=== PATIENT | male | born 1965 | race Caucasian/White ===

== ENCOUNTER 2018-08-22 22:39 | Inpatient (IN) | payer SELFPAY ==
[~2018-08-22] VITALS: Ht 180.3 cm; Wt 80.0 kg
[2018-08-22] MEDS ORDERED: IPRATROPIUM BROMIDE 0.02% 2.5 ML NEB NEB STA (22:43)
[2018-08-22] MEDS ORDERED: ALBUTEROL SULF 0.083% NEB SOLN 3 ML NEB NEB STA (22:43)
[2018-08-22] MEDS ORDERED: SODIUM CHLORIDE FLUSH 10 ML SYR INJ PRN (22:45)
[2018-08-22] MEDS ORDERED: SODIUM CHLORIDE 0.9% 500ML 500 ML IV STA (23:25)
[2018-08-22] MEDS ORDERED: LEVOFLOXACIN 750MG/D5W 150ML 150 ML IV ONE (23:30)
[2018-08-22] MEDS ORDERED: METHYLPREDNISOLONE SOD SUCC 125 MG/2ML VIAL IV ONE (23:30)
[2018-08-23] VITALS (17 sets, daily range): BP systolic 108–143; BP diastolic 72–98
[2018-08-23] MEDS ORDERED: D5.45%NS/KCL 20MEQ 1,000 ML IV ONE (00:03)
[2018-08-23] MEDS ORDERED: MORPHINE SULFATE INJ 4 MG/ML INJ 1ML IV PRN (00:15)
[2018-08-23] MEDS ORDERED: SODIUM CHLORIDE FLUSH 10 ML SYR INJ PRN (00:15)
[2018-08-23] MEDS ORDERED: ALBUTEROL SULF 0.083% NEB SOLN 3 ML NEB NEB SCH (00:15)
[2018-08-23] MEDS ORDERED: ENALAPRILAT IV INJ 1.25 MG/ML VIAL IV PRN (00:15)
[2018-08-23] MEDS ORDERED: IBUPROFEN 200 MG TAB PO PRN (00:15)
[2018-08-23] MEDS ORDERED: ONDANSETRON HCL INJ 2MG/ML 2ML 2 MG/ML VIAL IV PRN (00:15)
[2018-08-23] MEDS ORDERED: ACETAMINOPHEN 325 MG TAB PO PRN (00:15)
[2018-08-23] MEDS ORDERED: CEFEPIME HCL 2 GM/SOD CHL 0.9% 100 ML BAG IV SCH (00:15)
[2018-08-23] MEDS ORDERED: NICOTINE 14 MG/EA PATCH TOP SCH (00:15)
[2018-08-23] MEDS ORDERED: DIPHENHYDRAMINE HCL INJ 50 MG/ML VIAL IV PRN (00:15)
--- NOTE | 2018-08-23 00:16 | Diagnostic Imaging Report ---
EXAMINATION: CXR 2 VIEW - HOPD INDICATION: Shortness of breath, cough, history of smoking COMPARISON: None FINDINGS: PA and lateral views TUBES and LINES: None. LUNGS: Lungs are well inflated. Chronic appearing diffuse interstitial changes. There is no evidence of consolidative pneumonia or pulmonary edema. PLEURA: No pleural effusion or pneumothorax. HEART AND MEDIASTINUM: The cardiomediastinal silhouette is unremarkable. BONES AND SOFT TISSUES: No acute osseous lesion. Soft tissues are unremarkable. UPPER ABDOMEN: No free air under the diaphragm. IMPRESSION: Chronic appearing diffuse interstitial changes. Superimposed atypical infection also possible in the appropriate clinical setting. Signed by: DR. Fredy Dodd MD on 08/23/2018 12:12 AM
--- OUTSIDE RECORDS SUMMARY | 2018-08-23 00:26 | XMS REPORT ---
Author Author [facility] Address Unknown Phone Unavailable Care Team Providers Care Roving Hauler Name Role Phone Saida REED Unavailable Unavailable Problems This patient has no known problems. Allergies, Adverse Reactions, Alerts This patient has no known allergies or adverse reactions. Medications This patient has no known medications. Results Test Description Test Time Test Comments Text Results Atomic Results Result Comments CXR 2 VIEW - HOPD 2018-08-23 00:09:00 [place] [id number] Patient Name: KIM HICKEY MR #: [id number] : 1965 Age/Sex: 53/M Req #: [id number] Adm Physician: Ordered by: COOKIE REED MD Report #: [id number] Location: [facility] Room/Bed: Procedure: [id number] HOPD/CXR 2 VIEW - HOPD Exam Date: Exam Time: REPORT STATUS: Signed EXAMINATION: CXR 2 VIEW - HOPD INDICATION: Shortness of breath, cough, history of smoking COMPARISON: None FINDINGS: PA and lateral views TUBES and LINES: None. LUNGS: Lungs are well inflated. Chronic appearing diffuse interstitial changes. There is no evidence of consolidative pneumonia or pulmonary edema. PLEURA: No pleural effusion or pneumothorax. HEART AND MEDIASTINUM: The cardiomediastinal silhouette is unremarkable. BONES AND SOFT TISSUES: No acute osseous lesion. Soft tissues are unremarkable. UPPER ABDOMEN: No free air under the diaphragm. IMPRESSION: Chronic appearing diffuse interstitial changes. Superimposed atypical infection also possible in the appropriate clinical setting. Signed by: DR. Fredy Frost MD on 08/23/2018 12:12 AM Dictated By: FREDY FROST MD Transcribed By: JASPER on 08/23/1811 COPY TO: COOKIE REED MD
[2018-08-23] MEDS: IPRATROPIUM BROMIDE 0.02% 2.5 ML NEB NEB SCH ×7 (05:00→23:45)
[2018-08-23] MEDS: ALBUTEROL SULF 0.083% NEB SOLN 3 ML NEB NEB SCH ×7 (05:00→23:45)
--- NOTE | 2018-08-23 07:00 | NUR ---
REPORT FROM [facility] CALLED FOR EMERGENT TRANSFER ETA 30MIN
[2018-08-23] MEDS ORDERED: METHYLPREDNISOLONE SOD SUCC 125 MG/2ML VIAL IV SCH ×2 (09:00)
[2018-08-23 09:32] LABS: ABG PCO2 40 mmHg (41-51); ABG PH 7.34 (7.31-7.41)
[2018-08-23] MEDS: METHYLPREDNISOLONE SOD SUCC 40 MG/ML VIAL 1ML IV SCH ×2 (09:32→20:30)
[2018-08-23] MEDS: NICOTINE 14 MG/EA PATCH TOP SCH (09:32)
[2018-08-23 09:33] LABS: ABG HCO3 22 mmol/L (23-28); ABG PO2 66 mmHg (80-105)
--- NOTE | 2018-08-23 10:04 | NUR ---
patient received from [facility] at 0745. placed in bed and monitor applied. very short of breath with any exertion. CT chest ordered and completed. Dr Cates office notified of consult. vitals stable with BiPap in back up if needed. see admit assess. will monitor status closely.
--- NOTE | 2018-08-23 10:11 | Diagnostic Imaging Report ---
EXAM: CT Chest WITHOUT contrast 08/23/2018 8:15 AM INDICATION: Emphysema, pneumonia COMPARISON: Chest x-ray, 08/22/2018 TECHNIQUE: Chest was scanned utilizing a multidetector helical scanner from the lung apex through the level of the adrenal glands without administration of IV contrast. Absence of intravenous contrast decreases sensitivity for detection of lymphadenopathy and vascular pathology. Coronal and sagittal reformations were obtained. High-resolution protocol was performed including prone and supine, inspiration and expiration imaging. Dose modulation, iterative reconstruction, and/or weight based adjustment of the mA/kV was utilized to reduce the radiation dose to as low as reasonably achievable. IV CONTRAST: None RADIATION DOSE: Total DLP: 1635.21 mGy*cm Estimated effective dose: (DLP x 0.014 x size factor) mSv COMPLICATIONS: None FINDINGS: LINES/ TUBES: None. LUNGS AND AIRWAYS: There is moderate centrilobular emphysema. In addition, there are small nodular opacities extensively distributed in the upper and lower lobes bilaterally. There is localized airspace consolidation in the right middle lobe and, to a lesser extent, in the lingula. There is no localized air-trapping identified. Trachea and main bronchi are clear. There is bilateral perihilar bronchial wall thickening. PLEURA: No pleural effusion, pneumothorax or pleural calcification. HEART AND MEDIASTINUM: The thyroid gland is normal. There is extensive mediastinal adenopathy, including 1.2 cm pretracheal node (series 3, image 35), 1.4 cm precarinal node (image 54), 1.2 cm subcarinal node (image 65), 1.5 cm right hilar node (image 63), and 1.1 cm left hilar node (image 52). The heart is normal in size.. There is no pericardial effusion. The thoracic aorta is not dilated, and the main pulmonary artery measures 2.8 cm, nondilated. There is mild wall thickening of the distal esophagus, likely accentuated by lack of distention and possible small hiatus hernia. UPPER ABDOMEN: Included portions of the unenhanced liver, spleen, pancreas and adrenals show no focal abnormality. BONES: No acute or suspicious bony lesion. There are degenerative changes in the thoracic spine. SOFT TISSUES: Superficial surrounding soft tissue unremarkable. No significant axillary lymphadenopathy. IMPRESSION: 1. There is moderate centrilobular emphysema. 2. There are extensive small nodular opacities distributed throughout the lungs. There is also mediastinal adenopathy present. Findings may represent infection such is bronchiolitis or miliary appearance of atypical infection. Other possible considerations include hypersensitivity pneumonitis, sarcoid, connective tissue disorder and less likely lymphangitic spread of neoplasm.. 3. There are focal areas of consolidation in the right middle lobe and lingula which may represent superimposed acute pneumonitis. Signed by: Dr. Montrell Castle M.D. on 08/23/2018 10:08 AM
[2018-08-23] MEDS ORDERED: TUBERCULIN, PPD INJ 5 TU/0.1 ML INJ ID ONE (10:15)
--- NOTE | 2018-08-23 10:34 | NUR ---
PPD to left forearm instilled and marked.
[2018-08-23 10:53] LABS: CLARITY,URINE SL CLOUDY (CLEAR); COLOR,URINE YELLOW (YELLOW)
[2018-08-23 10:54] LABS: LEUKOCYTE ESTERASE ,URINE NEGATIVE (NEGATIVE); NITRITE,URINE NEGATIVE (NEGATIVE)
[2018-08-23 10:55] LABS: BILIRUBIN,URINE NEGATIVE (NEGATIVE); KETONES,URINE 1+ (NEGATIVE); PROTEIN,URINE DIPSTICK 3+ (NEGATIVE); URINE UROBILINOGEN 0.2 mg/dL (0.2 - 1)
[2018-08-23 10:57] LABS: RBC,URINE 0-5 /HPF (0-5); WBC,URINE (MAN) 0-5 /HPF (0-5)
[2018-08-23 10:58] LABS: COARSE GRANULAR CASTS,URINE >15 (0)
[2018-08-23 10:59] LABS: AMORPHOUS SEDIMENT,URINE MODERATE (FEW)
[2018-08-23 12:37] LABS: CREATINE KINASE MB 12.7 ng/mL (0-5.0)
[2018-08-23] MEDS: CEFEPIME 2 GM/NS 0.9% 100 ML 100 ML IV SCH (12:37)
[2018-08-23 13:47] LABS: HIV 1&2 AB SCREEN NON-REACTIVE (NONREACTIVE)
--- NOTE | 2018-08-23 14:55 | NUR ---
GAVE PACKET OF INFORMATION WITH [facility] [employer] FOR ASSISTANCE WITH LOW TO NO INCOME TO PATIENT. RESOURCES THAT PATIENT MAY BE ABLE TO FOLLOW UP UPON DISCHARGE. PT EDUCATED ON EACH RESOURCE AND UNDERSTANDING HOW TO FOLLOW UP TO SEE IF QUALIFIED FOR EACH RESOURCE.
--- NOTE | 2018-08-23 15:21 | Consultation ---
DATE OF CONSULTATION: 08/23/2018 Pulmonary Consultation HISTORY OF PRESENT ILLNESS: Charming but unfortunate 53-year-old gentleman with history of COPD, ill for some five years with shortness of breath on exertion. History of thoracentesis in the past, history of tonsillectomy in the past. Born in [place]. Progressively dyspneic over the last three days following a trip to [place], [place]. Had cough and chills and fever. Initially nonproductive and now productive of cisse sputum. On no regular medications. Smoked 55 pack years. 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 PHYSICAL EXAMINATION: GENERAL: He is a well-developed white male looking his stated age, anxious, somewhat tachypneic. VITAL SIGNS: Temperature 97.2, pulse 92, respirations 20 and deep. LUNGS: Bilateral rales. HEART: Regular rhythm. ABDOMEN: Nontender. EXTREMITIES: Nonedematous. IMPRESSION: Atypical pneumonia, possible underlying interstitial lung disease with micronodular infiltrate. Miliary infection cannot be excluded though the patient is afebrile. Labs from outside ER suggest leukocytosis with shift to the left. I will check HIV, QuantiFERON test, urine for histoplasma, high-resolution CT of the chest. Continue empiric antibiotics. We will request ID opinion for second opinion. Supplemental oxygen. The patient may require bronchoscopy and lavage if not soon improving. We will review CT when available. Thank you for this kind referral. MD ANGELY Sellers/PARISH /[id number]
--- NOTE | 2018-08-23 16:06 | History and Physical ---
HISTORY OF PRESENT ILLNESS: Mr. Xie is a 53-year-old man, heavy smoker, came to the emergency room complaining of 1-week history of severe cough, shortness of breath, and fever. PAST MEDICAL HISTORY: He denies. SOCIAL HISTORY: He smokes two and half packs per day. He drinks occasionally. ALLERGIES: NO KNOWN DRUG ALLERGIES. PAST SURGICAL HISTORY: He had tonsillectomy and he had some pleural effusion drained several years ago. PHYSICAL EXAMINATION: GENERAL: Today, he is awake. He is alert. VITAL SIGNS: Temperature is 96.9, blood pressure 143/82, and heart is regular rate at 92 per minute. LUNGS: Decreased breath sounds bilaterally. ABDOMEN: Distended and soft. LABORATORY DATA: On the blood work, cardiac enzymes are pending. He had lab work in Urgent Care, drug screening was negative. White count was 11.8 and hemoglobin 14.1. Sodium 129, potassium 3.8, creatinine 0.7, and glucose 124. Chest x-ray showed chronic appearing diffuse interstitial changes with superimposed atypical infection, also possible in the appropriate clinical settings. ASSESSMENT: 1. Acute hypoxic respiratory failure. 2. Chronic obstructive pulmonary disease exacerbation. 3. Probably bronchopneumonia. 4. Tobacco abuse. PLAN: At the present time is we got Pulmonary consult and Infectious Disease consult. Pulmonary consult with Dr. Nunez and ID consult with Dr. Cates. Continue neb treatments. Continue to monitor oxygenation on O2 nasal cannula. Continue methylprednisolone 20 mg IV q.12 hours. Continue IV antibiotics. All this was discussed with the patient and questions were answered to satisfaction. MD JOE Wheeler/HUGOL /[id number]
[2018-08-23] MEDS ORDERED: ENOXAPARIN SOD INJ 40 MG/0.4 ML SYR SC ONE (16:35)
[2018-08-23] MEDS ORDERED: ENOXAPARIN SOD INJ 40 MG/0.4 ML SYR SC SCH (17:00)
[2018-08-23 17:52] LABS: CREATINE KINASE MB 12.1 ng/mL (0-5.0)
--- NOTE | 2018-08-23 19:06 | Consultation ---
DATE OF CONSULTATION: 08/23/2018 REASON FOR CONSULTATION: Pneumonia. HISTORY OF PRESENT ILLNESS: This patient who is a 53-year-old white male, denies past medical history, but he is a heavy smoker, who smokes two packs a day for several years, comes in with one-week history of fever, chills, shortness of breath, coughing up brownish sputum. The patient comes into the emergency room where he was admitted. The patient is currently lying in bed comfortably. He states he is feeling better, but he is still short of breath. PAST MEDICAL HISTORY: Denies. PAST SURGICAL HISTORY: Denies. ALLERGIES: NKA. SOCIAL HISTORY: There is smoking two packs a day for more than 30 years. REVIEW OF SYSTEMS: Besides the shortness of breath and a cough, he denies any. PHYSICAL EXAMINATION: GENERAL: He is currently alert, oriented, does not seem to be in acute distress. VITAL SIGNS: Stable, currently afebrile. HEENT: He is not icteric. NECK: Supple. CHEST: Few crackles bilaterally. HEART: S1, S2. No S3, S4, or murmur. ABDOMEN: Soft. IMAGING DATA: CT scan showed emphysema, extensive small nodular opacities distributed throughout the lungs with mediastinal lymphadenopathy. There is also consolidation of right middle lobe. IMPRESSION AND PLAN: Pneumonia, community acquired, atypical presentation of the CT scan, could be Mycobacterium, Chlamydia, Mycoplasma. He is currently on cefepime and Levaquin. Continue same. We would recommend to obtain sputum for AFB x3, sputum for routine Gram stain culture and sensitivity. Order TB QuantiFERON, urine Legionella antigen, HIV. Recheck CBC and chemistry panel. Continue with steroids for now. Order blood cultures. We will follow with you. MD KARI Mooney/PARISH /[id number]
[2018-08-23] MEDS: LEVOFLOXACIN 500MG/D5W 100ML 100 ML IV SCH (20:30)
[2018-08-23] MEDS ORDERED: LEVOFLOXACIN 500MG/D5W 100ML IV SCH (22:45)
[2018-08-24] VITALS (23 sets, daily range): BP systolic 110–152; BP diastolic 69–100
[2018-08-24] MEDS: CEFEPIME 2 GM/NS 0.9% 100 ML 100 ML IV SCH ×3 (01:00→12:00)
[2018-08-24] MEDS: IPRATROPIUM BROMIDE 0.02% 2.5 ML NEB NEB SCH ×6 (03:05→23:15)
[2018-08-24] MEDS: ALBUTEROL SULF 0.083% NEB SOLN 3 ML NEB NEB SCH ×6 (03:05→23:15)
[2018-08-24 05:07] LABS: BASOPHILS # (AUTO) 0.2 (0.0-0.1); BASOPHILS % 0.8 % (0.0-1.0); HEMATOCRIT 41.1 % (38.2-49.6); HEMOGLOBIN 14.3 g/dL (14.0-18.0); LYMPHOCYTES % 11.3 % (18.0-39.1); MEAN CORPUSCULAR HEMOGLOBIN 30.3 pg (28-32); MEAN CORPUSCULAR HGB CONC 34.8 g/dL (31-35); MEAN CORPUSCULAR VOLUME 87.1 fL (81-99); MONOCYTES # (AUTO) 0.9 (0.2-0.8); MONOCYTES % 5.2 % (4.4-11.3); NEUTROPHILS % 78.7 % (38.7-80.0); PLATELET COUNT 377 x10e3/uL (140-360); RED BLOOD COUNT 4.72 x10e6/uL (4.3-5.7); RED CELL DISTRIBUTION WIDTH 13.2 % (11.7-14.4)
[2018-08-24 05:37] LABS: ALANINE AMINOTRANSFERASE 30 IU/L (0-55); ALBUMIN 2.2 g/dL (3.5-5.0); ALBUMIN/GLOBULIN RATIO 0.4 (0.8-2.0); ALKALINE PHOSPHATASE 104 IU/L (40-150); ANION GAP 15.7 mmol/L (8-16); BLOOD UREA NITROGEN 16 mg/dL (7-26); BUN/CREATININE RATIO 21 (6-25); CALCIUM 9.7 mg/dL (8.4-10.2); CARBON DIOXIDE 23 mmol/L (22-29); CHLORIDE 99 mmol/L (98-107); CREATININE, SERUM 0.76 mg/dL (0.72-1.25); EST GLOMERULAR FILTRATION RATE > 60 ML/MIN (60-); GLUCOSE 159 mg/dL (74-118); POTASSIUM 3.7 mmol/L (3.5-5.1); SODIUM 134 mmol/L (136-145)
[2018-08-24 05:42] LABS: INR 1.13
[2018-08-24 05:43] LABS: PARTIAL THROMBOPLASTIN TIME 30.5 seconds (23.8-35.5)
[2018-08-24 05:44] LABS: CREATINE KINASE 141 IU/L (30-200)
--- NOTE | 2018-08-24 06:15 | Diagnostic Imaging Report ---
EXAMINATION: CHEST SINGLE (PORTABLE) INDICATION: Shortness of breath. ^sob ^[id number] ^[id number] COMPARISON: Chest CT 08/23/2018 and chest x-ray 08/22/2018 FINDINGS: AP view TUBES and LINES: None. LUNGS: Emphysema with stable superimposed interstitial opacities corresponding to extensive nodular opacities on chest CT 08/23/2018 with broad differential including represent bronchiolitis or atypical infection. PLEURA: No pleural effusion or pneumothorax. HEART AND MEDIASTINUM: The cardiomediastinal silhouette is unremarkable. BONES AND SOFT TISSUES: No acute osseous lesion. Soft tissues are unremarkable. UPPER ABDOMEN: No free air under the diaphragm. IMPRESSION: No significant change. Stable diffuse opacities corresponding to extensive nodular opacities on chest CT 08/23/2018 with broad differential including represent bronchiolitis or atypical infection. Signed by: DR. Fredy Dodd MD on 08/24/2018 6:12 AM
[2018-08-24 07:21] LABS: LYMPHOCYTES % (MANUAL) 14 % (19-48); MONOCYTES % (MANUAL) 5 % (3.4-9.0); NEUTROPHILS % (MANUAL) 80 % (40-74)
[2018-08-24 07:23] LABS: PLATELET ESTIMATE ADEQUATE; PLATELET MORPHOLOGY COMMENT NORMAL; RBC MORPHOLOGY COMMENT NORMAL
[2018-08-24] MEDS: METHYLPREDNISOLONE SOD SUCC 40 MG/ML VIAL 1ML IV SCH ×2 (09:35→23:01)
[2018-08-24] MEDS: NICOTINE 14 MG/EA PATCH TOP SCH (09:35)
--- NOTE | 2018-08-24 12:34 | Progress Note ---
DATE: 08/24/2018 SUBJECTIVE: Mr. Xie is a 53-year-old man with history of being a heavy smoker 2-1/2 packs per day, came to the emergency room complaining of one week history of cough, shortness of breath and fever. He has been seen by Pulmonary and Infectious Disease. He is on IV antibiotics. OBJECTIVE: GENERAL: Today, he is feeling a little better. VITAL SIGNS: Temperature is 97.5, blood pressure is 114/89. HEART: Regular rate. LUNGS: Bilateral crackles. ABDOMEN: Distended and soft. LABORATORY DATA: On the blood work, potassium is 3.7, creatinine is 0.79, glucose is 159. White count is 17.7, hemoglobin is 14.3, hematocrit is 41.1. Blood gas had a pH of 7.34 and coagulation INR 1.13. Urine shows 0 to 5 white blood cells. HIB has come negative. Mycoplasma pneumonia is pending. TB test is pending. All the AFB cultures are pending. Blood cultures no growth so far. Chest CT shows moderate centrilobular emphysema, extensive small nodular opacities throughout the lungs. Some mediastinal adenopathy. There are also focal areas of consolidation in the right middle lobe and lingula that could represent acute pneumonitis. ASSESSMENT AND PLAN: 1. Acute hypoxic respiratory failure. 2. Chronic obstructive pulmonary disease exacerbation. 3. Atypical pneumonia. 4. Tobacco abuse. PLAN: At the present time is to continue IV steroids, IV antibiotics, neb treatments. Continue to monitor respiratory status. We are waiting for AFB results, Gram stain culture and sensitivity, TB QuantiFERON, urine Legionella. HIB so far has been negative. The overall prognosis of the patient is guarded. All this was discussed with the patient. All questions were answered to satisfaction. MD JOE Wheeler/PARISH /[id number]
--- NOTE | 2018-08-24 12:34 | Progress Note ---
DATE: 08/24/2018 SUBJECTIVE: Mr. Xie is a 53-year-old man with history of being a heavy smoker 2-1/2 packs per day, came to the emergency room complaining of 1-week history of cough, shortness of breath, and fever. He has been seen by Pulmonary and Infectious Disease. He is on IV antibiotics. PHYSICAL EXAMINATION: GENERAL: Today, he is feeling a little better. VITAL SIGNS: Temperature is 97.5, blood pressure is 114/89. HEART: Regular rate. LUNGS: Bilateral crackles. ABDOMEN: Distended and soft. LABORATORY DATA: On the blood work, potassium is 3.7, creatinine is 0.79, glucose is 159. White count is 17.7, hemoglobin is 14.3, hematocrit is 41.1. Blood gas had a pH of 7.34. Coagulation, INR 1.13. Urine shows 0-5 white blood cells. HIB has come negative. Mycoplasma pneumoniae is pending. TB test is pending. All the AFB cultures are pending. Blood cultures, no growth so far. Chest CT shows moderate centrilobular emphysema, extensive small nodular opacities throughout the lungs, some mediastinal adenopathy, there are also focal areas of consolidation in the right middle lobe and lingula that could represent acute pneumonitis. ASSESSMENT AND PLAN: 1. Acute hypoxic respiratory failure. 2. Chronic obstructive pulmonary disease exacerbation. 3. Atypical pneumonia. 4. Tobacco abuse. The plan at the present time is to continue IV steroids, IV antibiotics, neb treatments. Continue to monitor respiratory status. We are waiting for AFB results, Gram stain culture and sensitivity, TB QuantiFERON, urine Legionella. HIB so far has been negative. The overall prognosis of the patient is guarded. All this was discussed with the patient. All questions were answered to satisfaction. MD JOE Wheeler/HUGOL /[id number]
[2018-08-24 16:27] LABS: ANION GAP 13.7 mmol/L (8-16); BLOOD UREA NITROGEN 18 mg/dL (7-26); BUN/CREATININE RATIO 25 (6-25); CALCIUM 9.5 mg/dL (8.4-10.2); CARBON DIOXIDE 24 mmol/L (22-29); CHLORIDE 100 mmol/L (98-107); CREATININE, SERUM 0.73 mg/dL (0.72-1.25); EST GLOMERULAR FILTRATION RATE > 60 ML/MIN (60-); GLUCOSE 152 mg/dL (74-118); POTASSIUM 3.7 mmol/L (3.5-5.1); SODIUM 134 mmol/L (136-145)
[2018-08-24] MEDS: LEVOFLOXACIN 500MG/D5W 100ML 100 ML IV SCH (23:01)
[2018-08-25] VITALS (24 sets, daily range): BP systolic 97–143; BP diastolic 52–94
[2018-08-25] MEDS: CEFEPIME 2 GM/NS 0.9% 100 ML 100 ML IV SCH ×2 (00:04→11:37)
[2018-08-25] MEDS: IPRATROPIUM BROMIDE 0.02% 2.5 ML NEB NEB SCH ×5 (03:00→19:30)
[2018-08-25] MEDS: ALBUTEROL SULF 0.083% NEB SOLN 3 ML NEB NEB SCH ×3 (03:00→11:00)
[2018-08-25 05:01] LABS: BASOPHILS # (AUTO) 0.1 (0.0-0.1); BASOPHILS % 0.5 % (0.0-1.0); HEMATOCRIT 39.9 % (38.2-49.6); HEMOGLOBIN 13.5 g/dL (14.0-18.0); LYMPHOCYTES # (AUTO) 1.8 (1.0-3.2); LYMPHOCYTES % 9.9 % (18.0-39.1); MEAN CORPUSCULAR HEMOGLOBIN 29.7 pg (28-32); MEAN CORPUSCULAR HGB CONC 33.8 g/dL (31-35); MEAN CORPUSCULAR VOLUME 87.9 fL (81-99); MONOCYTES # (AUTO) 0.6 (0.2-0.8); MONOCYTES % 3.6 % (4.4-11.3); NEUTROPHILS # (AUTO) 14.7 (2.1-6.9); NEUTROPHILS % 82.7 % (38.7-80.0); PLATELET COUNT 424 x10e3/uL (140-360); RED BLOOD COUNT 4.54 x10e6/uL (4.3-5.7); RED CELL DISTRIBUTION WIDTH 13.7 % (11.7-14.4)
[2018-08-25 05:24] LABS: ANION GAP 12.6 mmol/L (8-16); BLOOD UREA NITROGEN 16 mg/dL (7-26); BUN/CREATININE RATIO 22 (6-25); CARBON DIOXIDE 24 mmol/L (22-29); CHLORIDE 99 mmol/L (98-107); CREATININE, SERUM 0.72 mg/dL (0.72-1.25); EST GLOMERULAR FILTRATION RATE > 60 ML/MIN (60-); GLUCOSE 184 mg/dL (74-118); POTASSIUM 3.6 mmol/L (3.5-5.1); SODIUM 132 mmol/L (136-145)
--- NOTE | 2018-08-25 06:59 | Diagnostic Imaging Report ---
EXAMINATION: CHEST SINGLE (PORTABLE) INDICATION: Pneumonia. COMPARISON: Chest CT 08/23/2018 and chest x-ray 08/24/2018 FINDINGS: AP view TUBES and LINES: None. LUNGS: Emphysema with stable superimposed interstitial opacities corresponding to extensive nodular opacities on chest CT 08/23/2018. PLEURA: No pleural effusion or pneumothorax. HEART AND MEDIASTINUM: The cardiomediastinal silhouette is unremarkable. BONES AND SOFT TISSUES: No acute osseous lesion. Soft tissues are unremarkable. UPPER ABDOMEN: No free air under the diaphragm. IMPRESSION: No significant change. Stable diffuse reticulonodular opacities, as seen on chest CT 08/23/2018 with broad differential including bronchiolitis or atypical infection. Signed by: DR. Fredy Dodd MD on 08/25/2018 6:56 AM
[2018-08-25 07:39] LABS: LYMPHOCYTES % (MANUAL) 8 % (19-48); MONOCYTES % (MANUAL) 3 % (3.4-9.0); NEUTROPHILS % (MANUAL) 89 % (40-74)
[2018-08-25] MEDS: NICOTINE 14 MG/EA PATCH TOP SCH (08:30)
[2018-08-25] MEDS: METHYLPREDNISOLONE SOD SUCC 40 MG/ML VIAL 1ML IV SCH ×2 (08:30→21:16)
--- NOTE | 2018-08-25 11:23 | NUR ---
PPD TO L FOREARM NEGATIVE. NO RAISED AREA OR REDNESS NOTED TO SITE.
--- NOTE | 2018-08-25 11:49 | Progress Note ---
DATE: 08/25/2018 HISTORY OF PRESENT ILLNESS: Mr. Xie is a 53-year-old man, heavy smoker, 2-1/2 pack per day, came to the emergency room complaining of 1-week history of cough, shortness of breath and fever. He is in ICU on IV antibiotics and neb treatments. He states he is feeling a little better. PHYSICAL EXAMINATION: GENERAL: He looks pale. He does not look too good clinically. VITAL SIGNS: Temperature is 97.8, blood pressure 123/79. CARDIAC: Regular rate at 99 per minutes. LUNGS: Decreased breath sounds bilaterally with wheezing. O2 saturation is 96%. ABDOMEN: Distended and soft. LABORATORY DATA: Potassium 3.6, creatinine is 0.72, and glucose is 184. White count is 17.7, hemoglobin 13.5, and hematocrit 39.9. The chest CT shows centrilobular emphysema, extensive small nodular opacity throughout the lungs, some adenopathies, consolidation in the right middle lobe and lingula that could represent acute pneumonitis. ASSESSMENT: 1. Acute hypoxic respiratory failure. 2. Chronic obstructive pulmonary disease exacerbation. 3. Atypical pneumonia. 4. Tobacco abuse. PLAN: Plan at the present time, we are awaiting for AFB results. We are waiting for sputum culture results. We have mycoplasma, TB test, and Legionella antigen is also pending. Continue IV cefepime. Continue IV steroids. Continue nausea and pain medication. Continue neb treatments with albuterol. The patient is going to go for bronchoscopy today. The overall prognosis of the patient remains guarded. MD JOE Wheeler/MODL /[id number]
[2018-08-25] MEDS ORDERED: PHENYLEPHRINE HCL 1% NA SPR 15 ML BTL ONE (12:30)
--- NOTE | 2018-08-25 12:54 | NUR ---
PT TAKEN FOR PROCEDURE AT THIS TIME
--- NOTE | 2018-08-25 14:00 | NUR ---
PT BACK FROM PROCEDURE, COUGHING AND SWEATING AT THIS TIME SATS AT 87% PT PLACED ON 15L HI KIRT AT THIS TIME BY RT. WILL CONTINUE TO MONITOR CLOSELY TEMP. 98.0
[2018-08-25] MEDS ORDERED: LIDOCAINE HCL 4% 50 ML BTL ONE (14:17)
[2018-08-25] MEDS ORDERED: LIDOCAINE HCL 2% LOCAL INJ 5 ML SDV VIAL INJ ONE (14:33)
[2018-08-25] MEDS ORDERED: PROPOFOL IV EMULSION 10 MG/ML 20 ML VIAL ONE (14:33)
[2018-08-25] MEDS ORDERED: SEVOFLURANE INHAL SOLN 250 ML PEN BTL ONE (14:33)
[2018-08-25] MEDS: LEVALBUTEROL HCL SOLN NEBU 0.63 MG/3 ML NEB INH PRN (14:33)
[2018-08-25] MEDS ORDERED: MIDAZOLAM HCL 2 MG/2 ML VIAL ONE (15:04)
[2018-08-25] MEDS ORDERED: FENTANYL CITRATE/PF 100MCG/2 ML INJ ONE (15:04)
--- NOTE | 2018-08-25 16:08 | Diagnostic Imaging Report ---
EXAM: CHEST SINGLE (PORTABLE), AP Portable DATE: 08/25/2018 Time stamp on exam: 2:10 PM INDICATION: Shortness of breath; status post bronchoscopy with lung biopsy COMPARISON: 08/24/2018 chest x-ray. FINDINGS: LINES/TUBES: None LUNGS: Extensive nodular opacities within both lung hurtado; right side greater than left. PLEURA: No effusions or pneumothorax. HEART AND MEDIASTINUM: Normal size and contour. BONES AND SOFT TISSUES: No acute findings. IMPRESSION: 1. Extensive bilateral small pulmonary nodular opacities. 2. No significant change or evidence of a pneumothorax. Signed by: Dr. Sudheer Hess DO on 08/25/2018 4:05 PM
[2018-08-25 16:42] LABS: BODY FLUID APPEARANCE CLEAR; BODY FLUID COLOR COLORLESS; BODY FLUID TYPE PLEURAL
[2018-08-25 16:43] LABS: RBC,BODY FLUID 17 cells/uL; WBC,BODY FLUID 423 cells/uL
[2018-08-25 17:16] LABS: LYMPHOCYTES,BODY FLUID 1 %; MONO/MACROPHG,BODY FLUID 1 %; NEUTROPHILS,BODY FLUID 98 %
--- NOTE | 2018-08-25 19:00 | NUR ---
Report received. Assumed care. Assessment done. See interventions. IV saline locked. 5L HFNC with sats 100%. SOB with exertion. Dangled on side of bed x 15 min. Shelli well.
[2018-08-25] MEDS: LEVALBUTEROL HCL SOLN NEBU 0.63 MG/3 ML NEB INH SCH (19:30)
--- NOTE | 2018-08-25 19:49 | NUR ---
Family in to visit. Questions answered.
[2018-08-25] MEDS: LEVOFLOXACIN 500MG/D5W 100ML 100 ML IV SCH (21:16)
--- NOTE | 2018-08-25 22:12 | Operative Report ---
DATE OF PROCEDURE: 08/25/2018 SURGEON: Roberth Nunez MD INDICATION: The patient with miliary infiltrates, negative cultures. Procedure was performed to rule out bacteriologic studies and for biopsy. Informed consent obtained from the patient. ANESTHESIA: MAC anesthesia was provided by Dr. Gil. PROCEDURE IN DETAIL: The procedure was performed through a LMA and O2 saturation remained above 95% throughout the procedure. There was severe inflammation of the true vocal cords, severe purulent tracheobronchitis throughout the bronchial tree. Purulent secretions were lavaged ___clear . Bronchoalveolar lavage was performed in the right middle lobe. Following this, 4 transbronchial biopsies were obtained under fluoroscopic control from the right lower lobe. The patient tolerated the procedure well. Minimal bleeding less than 2 ml mL of blood loss. Specimens were sent for bacteriologic and cytologic and pathologic study. . Chest x-ray is pending. He was extubated in the endoscopy suite. MD ANGELY Sellers/MODL /[id number] [id number]
[2018-08-26] VITALS (24 sets, daily range): BP systolic 110–137; BP diastolic 66–99
[2018-08-26] MEDS: CEFEPIME 2 GM/NS 0.9% 100 ML 100 ML IV SCH ×2 (00:27→12:10)
[2018-08-26] MEDS: LEVALBUTEROL HCL SOLN NEBU 0.63 MG/3 ML NEB INH SCH ×4 (01:00→19:05)
[2018-08-26] MEDS: IPRATROPIUM BROMIDE 0.02% 2.5 ML NEB NEB SCH ×4 (01:00→19:05)
--- NOTE | 2018-08-26 05:32 | NUR ---
Offered bath x 2 through the night. Refused at this time.
--- NOTE | 2018-08-26 06:53 | Diagnostic Imaging Report ---
EXAMINATION: CHEST SINGLE (PORTABLE) INDICATION: Status post biopsy. COMPARISON: Chest CT 08/23/2018 and chest x-ray 08/25/2018 FINDINGS: AP view TUBES and LINES: None. LUNGS: Emphysema with stable diffuse reticulonodular opacities. PLEURA: No pleural effusion or pneumothorax. HEART AND MEDIASTINUM: The cardiomediastinal silhouette is unremarkable. BONES AND SOFT TISSUES: No acute osseous lesion. Soft tissues are unremarkable. UPPER ABDOMEN: No free air under the diaphragm. IMPRESSION: No significant change. No pneumothorax Stable diffuse reticulonodular opacities. Signed by: DR. Fredy Dodd MD on 08/26/2018 6:49 AM
[2018-08-26] MEDS: NICOTINE 14 MG/EA PATCH TOP SCH (09:13)
[2018-08-26] MEDS: METHYLPREDNISOLONE SOD SUCC 40 MG/ML VIAL 1ML IV SCH ×2 (09:13→21:09)
[2018-08-26] MEDS: LEVALBUTEROL HCL SOLN NEBU 0.63 MG/3 ML NEB INH PRN (11:40)
--- NOTE | 2018-08-26 13:10 | Progress Note ---
DATE: 08/26/2018 SUBJECTIVE: Mr. Xie is a 53-year-old man, heavy smoker, two and half packs per day, came to the emergency room complaining of cough, shortness of breath, and fever. He was admitted to the ICU, was started on neb treatments, IV antibiotics, on oxygen and had a bronchoscopy done yesterday. OBJECTIVE: GENERAL: Today, he is awake and alert. He looks better today and he feels better. VITAL SIGNS: Temperature is 97.8 and blood pressure is 121/98. HEART: Regular rate. LUNGS: Decreased breath sounds bilaterally. ABDOMEN: Distended and soft. LABORATORY DATA: White count 17.73, hemoglobin 13.5, and hematocrit 39.9. Potassium 3.6, creatinine 0.72, and glucose was 184. Histoplasma pending. Urine legionella negative. Pneumocystis carinii pending. Mycoplasma pneumoniae . TB test was negative. We are waiting for AFBs that are pending. Blood cultures have been so far negative. HIV was negative. ASSESSMENT: 1. Acute hypoxic respiratory failure. 2. Chronic obstructive pulmonary disease exacerbation. 3. Atypical pneumonia. 4. Tobacco abuse. PLAN: At the present time is to wait for cultures and AFBs results. Continue IV antibiotics, IV steroids, had a bronchoscopy done yesterday. No significant findings. All this was discussed with the patient. All questions were answered to satisfaction. MD JOE Wheeler/PARISH /[id number]
[2018-08-26] MEDS: LEVOFLOXACIN 500MG/D5W 100ML 100 ML IV SCH (21:09)
[2018-08-27] VITALS (19 sets, daily range): BP systolic 103–136; BP diastolic 51–95
[2018-08-27] MEDS: LEVALBUTEROL HCL SOLN NEBU 0.63 MG/3 ML NEB INH SCH ×4 (01:45→19:15)
[2018-08-27] MEDS: IPRATROPIUM BROMIDE 0.02% 2.5 ML NEB NEB SCH ×4 (01:45→19:15)
[2018-08-27 05:09] LABS: EOSINOPHILS % 0.2 % (0.0-6.0); HEMATOCRIT 44.1 % (38.2-49.6); HEMOGLOBIN 14.7 g/dL (14.0-18.0); LYMPHOCYTES # (AUTO) 2.3 (1.0-3.2); LYMPHOCYTES % 17.4 % (18.0-39.1); MEAN CORPUSCULAR HEMOGLOBIN 30.1 pg (28-32); MEAN CORPUSCULAR HGB CONC 33.3 g/dL (31-35); MEAN CORPUSCULAR VOLUME 90.2 fL (81-99); MONOCYTES # (AUTO) 0.7 (0.2-0.8); MONOCYTES % 5.2 % (4.4-11.3); NEUTROPHILS # (AUTO) 9.6 (2.1-6.9); NEUTROPHILS % 72.3 % (38.7-80.0); PLATELET COUNT 452 x10e3/uL (140-360); RED BLOOD COUNT 4.89 x10e6/uL (4.3-5.7); RED CELL DISTRIBUTION WIDTH 13.6 % (11.7-14.4)
[2018-08-27 05:30] LABS: ALANINE AMINOTRANSFERASE 49 IU/L (0-55); ALBUMIN 2.2 g/dL (3.5-5.0); ALBUMIN/GLOBULIN RATIO 0.4 (0.8-2.0); ALKALINE PHOSPHATASE 82 IU/L (40-150); ANION GAP 12.6 mmol/L (8-16); BLOOD UREA NITROGEN 18 mg/dL (7-26); BUN/CREATININE RATIO 25 (6-25); CALCIUM 9.2 mg/dL (8.4-10.2); CARBON DIOXIDE 28 mmol/L (22-29); CHLORIDE 97 mmol/L (98-107); CREATININE, SERUM 0.73 mg/dL (0.72-1.25); EST GLOMERULAR FILTRATION RATE > 60 ML/MIN (60-); GLUCOSE 141 mg/dL (74-118); SODIUM 133 mmol/L (136-145)
[2018-08-27 05:38] LABS: POTASSIUM 4.6 mmol/L (3.5-5.1)
[2018-08-27] MEDS: METHYLPREDNISOLONE SOD SUCC 40 MG/ML VIAL 1ML IV SCH ×2 (09:07→20:14)
[2018-08-27] MEDS: NICOTINE 14 MG/EA PATCH TOP SCH (09:07)
[2018-08-27] MEDS: CEFEPIME 2 GM/NS 0.9% 100 ML 100 ML IV SCH ×2 (12:38)
[2018-08-27 14:37] LABS: LYMPHOCYTES % (MANUAL) 17 % (19-48); MONOCYTES % (MANUAL) 5 % (3.4-9.0); MYELOCYTES % (MANUAL) 1 % (0-0); NEUTROPHILS % (MANUAL) 69 % (40-74)
[2018-08-27 14:39] LABS: PLATELET ESTIMATE ADEQUATE; PLATELET MORPHOLOGY COMMENT NORMAL; RBC MORPHOLOGY COMMENT NORMAL
--- NOTE | 2018-08-27 17:05 | NUR ---
patient sitting in recliner since 11am. sob with minimal exertion. ambulated to bathroom twice today. patient tolerating meals well. will continue to monitor patient. okay with all physicians for patient to be downgraded today. pt updated with plan of care and agrees with poc.
[2018-08-27] MEDS: LEVOFLOXACIN 500MG/D5W 100ML 100 ML IV SCH (20:14)
[2018-08-28] VITALS (10 sets, daily range): BP systolic 102–152; BP diastolic 67–94
[2018-08-28] MEDS: CEFEPIME 2 GM/NS 0.9% 100 ML 100 ML IV SCH ×2 (00:11→11:11)
[2018-08-28] MEDS: LEVALBUTEROL HCL SOLN NEBU 0.63 MG/3 ML NEB INH SCH ×4 (00:15→20:25)
[2018-08-28] MEDS: IPRATROPIUM BROMIDE 0.02% 2.5 ML NEB NEB SCH ×4 (00:15→20:25)
[2018-08-28] MEDS: NICOTINE 14 MG/EA PATCH TOP SCH (08:48)
[2018-08-28] MEDS: METHYLPREDNISOLONE SOD SUCC 40 MG/ML VIAL 1ML IV SCH (08:48)
[2018-08-28] MEDS: LEVOFLOXACIN 500MG/D5W 100ML 100 ML IV SCH (20:25)
[2018-08-29] VITALS (9 sets, daily range): BP systolic 102–134; BP diastolic 69–99
[2018-08-29] MEDS: CEFEPIME 2 GM/NS 0.9% 100 ML 100 ML IV SCH ×2 (00:34→12:00)
[2018-08-29] MEDS: IPRATROPIUM BROMIDE 0.02% 2.5 ML NEB NEB SCH ×4 (01:00→20:00)
[2018-08-29] MEDS: LEVALBUTEROL HCL SOLN NEBU 0.63 MG/3 ML NEB INH SCH ×4 (01:00→20:00)
[2018-08-29] MEDS: METHYLPREDNISOLONE SOD SUCC 40 MG/ML VIAL 1ML IV SCH (09:45)
[2018-08-29] MEDS: NICOTINE 14 MG/EA PATCH TOP SCH (09:45)
--- NOTE | 2018-08-29 14:23 | Progress Note ---
DATE: 08/29/2018 SUBJECTIVE: Mr. Xie is a 53-year-old man, heavy smoker of two packs per day, came to the emergency room complaining of shortness of breath, fever and cough. He was found to have pneumonia, started on IV antibiotics, IV steroids. Had a bronchoscopy done that did not show any mass. He is in the ICU due to hypoxemia. PHYSICAL EXAMINATION: GENERAL: Today, he is awake and alert. He looks better. VITAL SIGNS: Temperature is 96, blood pressure is 114/88. LUNGS: Decreased breath sounds bilaterally. HEART: Regular rate. ABDOMEN: Soft. LABORATORY DATA: On the blood work; white count 13.29, hemoglobin 14.7. Creatinine 0.73, glucose 141. Chest x-ray done on the showed no change. No pneumothorax. Stable diffuse reticular nodular opacities. Bronchial washings are showing Streptococcus group C. AFBs are pending. Fungal culture is pending. Blood cultures are negative. ASSESSMENT: 1. Acute hypoxic respiratory failure. 2. Chronic obstructive pulmonary disease exacerbation. 3. Atypical pneumonia. 4. Tobacco abuse. PLAN: At present time, we are awaiting for AFBs and fungal culture results. Continue IV antibiotics, neb treatments, steroids. Infectious Disease and Pulmonary following patient with me. Clinically, he looks better. All this was discussed with the patient. All questions were answered to satisfaction. MD JOE Wheeler/[place]ISH /[id number]
[2018-08-29] MEDS ORDERED: SODIUM CHLORIDE 0.9% 250ML 250 ML ONE ×2 (14:30→21:45)
--- NOTE | 2018-08-29 17:37 | NUR ---
hr 130's from 70-80's with minimal exertion (talking, eating). O2 sats 94-96% on 5L nasal cannula. unable to wean oxygen. updated Dr. Bowles. new orders received for cta chest w/ contrast. updated patient with plan of care.
--- NOTE | 2018-08-29 18:29 | NUR ---
cta chest with contrast completed. patient tolerated exam well.
[2018-08-29] MEDS ORDERED: SODIUM CHLORIDE 0.9% 50ML 50 ML ONE (18:45)
[2018-08-29] MEDS ORDERED: IOPAMIDOL 370 MG/ML 200 ML INFUS..BTL INJ ONE (18:45)
--- NOTE | 2018-08-29 19:37 | Diagnostic Imaging Report ---
EXAM: CT Chest WITH contrast (PE Protocol) 08/29/2018 5:34 PM INDICATION: Shortness of breath. Elevated heart rate. ^r/o PE COMPARISON: Chest x-ray 08/26/2018. CT chest 08/23/2018. TECHNIQUE: Chest was scanned utilizing a multidetector helical scanner from the lung apex through the level of the adrenal glands without administration of IV contrast. Coronal and sagittal reformations were obtained. Pulmonary embolism protocol was performed. MIPS reconstruction images were performed in sagittal and coronal by the technologist at the scanner workstation. IV CONTRAST: 100 mL of Isovue 370 COMPLICATIONS: None RADIATION DOSE: Total DLP: 1075.11 mGy*cm Estimated effective dose: (DLP x 0.014 x size factor) mSv CTDIvol has been reviewed. It is below the limits set by the Radiation Protocol Committee (RPC). Dose modulation, iterative reconstruction, and/or weight based adjustment of the mA/kV was utilized to reduce the radiation dose to as low as reasonably achievable. FINDINGS: LINES/ TUBES: None. LUNGS AND AIRWAYS: Good contrast bolus. No pulmonary emboli. Moderate centrilobular emphysematous changes with apical predominance. Diffuse tree-in-bud opacities throughout the entire lung is again seen with slight improvement compared to this previous CT. Slight improvement in the more consolidative appearance in the right middle and lingular regions. However, there are some associated areas of groundglass opacity. Bronchial wall thickening remain unchanged. PLEURA: The pleural spaces are clear. HEART AND MEDIASTINUM: The thyroid gland is normal. Extensive mediastinal and hilar lymph nodes are again seen. * 0.8 cm right paratracheal lymph node (series 5, image 49). Previously 0.9 cm. * 0.9 cm right precarinal lymph node (image 55), previously 1.4 cm. * 1.1 cm right hilar lymph node (image 63), previously 1.5 cm. * 0.6 cm subcarinal lymph node (image 64), previously 1.2 cm. The heart is normal in size. There is no pericardial effusion. Main pulmonary artery measures 2.3 cm. Ascending aorta measures 3.8 cm. UPPER ABDOMEN: Unremarkable. BONES: The visualized bony thorax is within normal limits. SOFT TISSUES: Unremarkable. IMPRESSION: 1. No pulmonary emboli. 2. Unchanged moderate centrilobular emphysema. 3. Slight improvement in diffuse tree-in-bud nodules throughout bilateral lungs with improving mediastinal lymph nodes. This likely represents improving bronchiolitis. However, miliary appearance of atypical infection should remain within the differential. Hypersensitivity pneumonitis is within the differential. Sarcoidosis and connected tissue disorder and lymphangitic spread of tumor are much less likely. Signed by: Dr. Carlos Nance M.D. on 08/29/2018 7:33 PM
--- NOTE | 2018-08-29 21:13 | NUR ---
patient received to room 284 via bed from icu at this time. vss. no c/o pain noted. in use. hob elevated for comfort. respirations remain slightly labored. patient placed on telemetry #[address] 117[address] family noted at the bedside. patient/family instructed to call for assistance when needed.
--- NOTE | 2018-08-29 21:25 | NUR ---
REPORT GIVEN TO STEVEN HOU, TRANSFERRED TO ROOM 203
[2018-08-29] MEDS: LEVOFLOXACIN 500MG/D5W 100ML 100 ML IV SCH (21:41)
[2018-08-30] VITALS (7 sets, daily range): BP systolic 103–135; BP diastolic 54–89
[2018-08-30] MEDS: IPRATROPIUM BROMIDE 0.02% 2.5 ML NEB NEB SCH ×4 (01:30→19:30)
[2018-08-30] MEDS: LEVALBUTEROL HCL SOLN NEBU 0.63 MG/3 ML NEB INH SCH ×4 (01:30→19:30)
--- NOTE | 2018-08-30 07:25 | NUR ---
PT UP IN BED DENIES PAIN,O2 5L HIGH KIRT IN PLACE,NO SOB NOTED
[2018-08-30] MEDS: NICOTINE 14 MG/EA PATCH TOP SCH (08:33)
[2018-08-30] MEDS: METHYLPREDNISOLONE SOD SUCC 40 MG/ML VIAL 1ML IV SCH (08:33)
--- NOTE | 2018-08-30 12:43 | Progress Note ---
DATE: 08/30/2018 SUBJECTIVE: Mr. Xie is a 53-year-old man, heavy smoker, 2-1/2 packs per day, came to the emergency room complaining of cough, fever, and shortness of breath, was found to have pneumonia, had a bronchoscopy done. He is on IV antibiotics, transferred from ICU to the floor. OBJECTIVE: VITAL SIGNS: He is still on O2 nasal cannula. Temperature is 96.8, blood pressure 111/73. GENERAL: He is awake. He is alert. He is feeling better. HEART: Regular rate. LUNGS: Decreased breath sounds bilaterally. ABDOMEN: Distended and soft. LAB WORK: White count is 13.29, hemoglobin is 14.7, and hematocrit is 44.1. Potassium 4.6, creatinine 0.73. Glucose 141. Mycoplasma pneumoniae IgG came back elevated, IgM was normal. Negative Legionella and negative Pneumocystis carinii. A histoplasma is pending. IMAGING DATA: Had a chest CT done yesterday that shows no pulmonary emboli, but unchanged moderate centrilobular emphysema, slight improvement in diffuse tree-in-bud nodules throughout bilateral lungs with improving mediastinal lymph nodes, improving bronchiolitis. However, miliary appearance of atypical infection should remain within the differential. Sarcoidosis or connective tissue disorder and lymphatic spread of tumor are much less likely. Bronchial washing is showing beta Streptococcus group C, AFB is still pending. ASSESSMENT: On this patient: 1. Acute hypoxic respiratory failure. 2. Chronic obstructive pulmonary disease exacerbation. 3. Atypical pneumonia. 4. Tobacco abuse. PLAN: At the present time, continue IV steroids, IV antibiotics, neb treatments. Clinically, he is doing better. Continue PT and OT. All this was discussed with the patient. All questions were answered to satisfaction. MD JOE Wheeler/HUGOL /[id number]
--- NOTE | 2018-08-30 17:44 | NUR ---
Nutrition Screen Note RD Recommendation for Physician: -Continue cardiac diet as ordered -The patient meets criteria for MODERATE protein-calorie malnutrition. Plan of Care: RD following, monitoring for tolerance and adequacy Nutrition reason for involvement: LOS Primary Diagnose(s): 1. Acute hypoxic respiratory failure. 2. Chronic obstructive pulmonary disease exacerbation. 3. Atypical pneumonia. 4. Tobacco abuse. PMH: COPD Ht: 71in Wt: 167lb BMI: 23.3kg/m2 IBW: 172lb RD Assessment: (08/30) Chart reviewed. Labs and meds reviewed. 53yo M, who was admitted for SOB. Currently on IV abx and steroid. Visited pt in the room. Pt reported poor appetite and ~10lbs weight loss 2 weeks [employer]. Appetite has significantly improved since admission. Pt ate 100% of his lunch today. No GI complains noted. Pt denied any chewing or swallowing difficulty. LBM 08/30. No physical sign of muscle and fat loss noted. Current diet is appropriate; RD doesnt think pt need any ONS at this time since PO >50%. Will continue to monitor and follow. Current Diet: cardiac diet Malnutrition Evaluation (08/30) The patient meets criteria for MODERATE protein-calorie malnutrition. Energy intake: <75% of estimated energy requirements for >7 days Weight loss: >2% in 1week (Acute) Fat loss: None Muscle loss: None Supporting Evidence: Fluid accumulation: unable to evaluate Functional Status: no changes Diet Education Needs Assessment: Diet education not indicated. Nutrition Care Level: low Signed: Elyse Tello, MS, RD, LD
--- NOTE | 2018-08-30 18:08 | NUR ---
PT UP IN BED ,DENIES PAIN NO DISTRESS NOTED,O2 3L HIGH KIRT
--- NOTE | 2018-08-30 19:15 | NUR ---
patient received awake, alert, lying quietly in bed. no c/o pain noted. respirations remain slightly labored. 02/5l hf/nc in use. pm assessment complete. patient instructed to call for assistance when needed.
[2018-08-30] MEDS: LEVOFLOXACIN 500MG/D5W 100ML 100 ML IV SCH (20:28)
[2018-08-31] VITALS (8 sets, daily range): BP systolic 99–129; BP diastolic 70–81
[2018-08-31] MEDS: LEVALBUTEROL HCL SOLN NEBU 0.63 MG/3 ML NEB INH SCH ×4 (00:45→19:33)
[2018-08-31] MEDS: IPRATROPIUM BROMIDE 0.02% 2.5 ML NEB NEB SCH ×4 (00:45→19:33)
[2018-08-31 06:11] LABS: HEMATOCRIT 50.9 % (38.2-49.6); HEMOGLOBIN 16.6 g/dL (14.0-18.0); MEAN CORPUSCULAR HEMOGLOBIN 29.7 pg (28-32); MEAN CORPUSCULAR HGB CONC 32.6 g/dL (31-35); MEAN CORPUSCULAR VOLUME 91.2 fL (81-99); PLATELET COUNT 516 x10e3/uL (140-360); RED BLOOD COUNT 5.58 x10e6/uL (4.3-5.7); RED CELL DISTRIBUTION WIDTH 13.2 % (11.7-14.4)
[2018-08-31 06:21] LABS: ANION GAP 10.2 mmol/L (8-16); BLOOD UREA NITROGEN 22 mg/dL (7-26); BUN/CREATININE RATIO 28 (6-25); CALCIUM 8.6 mg/dL (8.4-10.2); CARBON DIOXIDE 29 mmol/L (22-29); CHLORIDE 96 mmol/L (98-107); CREATININE, SERUM 0.79 mg/dL (0.72-1.25); EST GLOMERULAR FILTRATION RATE > 60 ML/MIN (60-); GLUCOSE 100 mg/dL (74-118); POTASSIUM 4.2 mmol/L (3.5-5.1); SODIUM 131 mmol/L (136-145)
--- NOTE | 2018-08-31 07:00 | NUR ---
RECEIVED PATIENT RESTING IN BED. NO ACUTE DISTRESS NOTED. CALL LIGHT WITHIN REACH. BED IN THE LOWEST POSITION.
[2018-08-31] MEDS: NICOTINE 14 MG/EA PATCH TOP SCH (08:42)
[2018-08-31 09:02] LABS: EOSINOPHILS % (MANUAL) 3 % (0-7); LYMPHOCYTES % (MANUAL) 34 % (19-48); MONOCYTES % (MANUAL) 4 % (3.4-9.0); MYELOCYTES % (MANUAL) 1 % (0-0); NEUTROPHILS % (MANUAL) 57 % (40-74)
[2018-08-31 09:04] LABS: RBC MORPHOLOGY COMMENT NORMAL
[2018-08-31 09:05] LABS: PLATELET ESTIMATE SLIGHTLY INCREASED; PLATELET MORPHOLOGY COMMENT NORMAL
--- NOTE | 2018-08-31 11:49 | Progress Note ---
DATE: 08/31/2018 SUBJECTIVE: Mr. Xie is a 53-year-old man, heavy smoker, 2-1/2 pack per day, came to the emergency room with cough, fever, shortness of breath, found to have pneumonia and had a bronchoscopy. Sputum was sent for AFB. He is on IV antibiotics. PHYSICAL EXAMINATION: GENERAL: He is awake and alert. He is feeling better. He is still short of breath. VITAL SIGNS: Temperature is 95.6, blood pressure is 117/81. HEART: Regular rate. LUNGS: Clear to auscultation. ABDOMEN: Soft. LABORATORY DATA: On the blood work; white count is 10.24, hemoglobin 16.6, hematocrit 50.9. Sodium is 131, potassium 4.2, creatinine 0.79, glucose is 100. Gram stain is showing streptococcal group C beta hemolytic. AFB is still pending. ASSESSMENT: 1. Acute hypoxic respiratory failure, improving. 2. Chronic obstructive pulmonary disease exacerbation. 3. Atypical pneumonia. 4. Tobacco abuse. PLAN: Plan at present time is to continue neb treatments, IV antibiotics, IV steroids. Continue PT, OT. Once the patient is stable and we have the culture results, we can switch him to p.o. antibiotics and discharge him home. All this was discussed with the patient. All questions were answered to satisfaction. MD JOE Wheeler/[place] /[id number]
--- NOTE | 2018-08-31 17:51 | NUR ---
CASE MANAGEMENT INITIAL ASSESSMENT Slurry Man to bedside to discuss plan of care with patient/family. CM/SW role and care transitions discussed. Anticipated discharge plan discussed along with duration of care. CM/SW discussed patients right to make decisions in care. CM/SW work hours given. Patient lives: MOTHER Admit/Transfer: ER Hospital/ER visits since last admit:0 POA/Emergency contact: KHUSHI HICKEY, MOTHER, Current/Previous Home Health: NONE PCP/Follow-up Care: WILL FOLLOW UP WITH [facility] Current/Previous DME: NONE Medications (referring to index hospitalization or the first time you were in the hospital) a. Were changes made in your medications when you were in the hospital on [date of index hospitalization]? Yes No Not sure Explain: Note: If no or not sure, please skip to question d b. Did you understand the changes? Yes No Explain: c. Were you able to obtain your new medications right away? Yes No n/a SNF only Explain: d. Were you able to take your medications like the doctor wanted you to? Yes No Explain: e. Did the hospital give you an accurate, easy to understand list of medications when you left? Yes No n/a SNF only Explain: Scale of 1-10 how comfortable does patient feel with disease management in outpatient settin Other Services: NONE Employment Status: UNEMPLOYED Areas of Concerns: MAY NEED HOME 02 Referral Needs: REFERRED TO [facility] FOR F/U MEDICAL CARE AND MEDICATIONS Education Needs: SMOKING CESSATION IMM/PATINO given and signed (if applicable): N/A Goal for discharge:DC HOME WITHOUT OXYGEN CM/SW left business card at the bedside with contact information. Name and number was also written on the patients whiteboard. Patient verbalized understanding of discussion. CM will follow-up with ongoing discharge and transition of care needs.
--- NOTE | 2018-08-31 19:15 | NUR ---
REPORT GIVEN TO ONCOMING NURSE, PATIENT IS RESTING IN BED. NO ACUTE DISTRESS NOTED. CALL LIGHT WITHIN REACH. BED IN THE LOWEST POSITION.
--- NOTE | 2018-08-31 19:28 | NUR ---
PT IS RESTING IN BED. NO RESPIRATORY DISTRESS NOTED. BED IN THE LOWEST POSITION, LOCKED, AND CALL LIGHT WITHIN REACH. WILL CONTINUE TO MONITOR.
[2018-08-31] MEDS: LEVOFLOXACIN 500MG/D5W 100ML 100 ML IV SCH (22:21)
[2018-09-01] VITALS (9 sets, daily range): BP systolic 100–124; BP diastolic 68–75
[2018-09-01] MEDS: LEVALBUTEROL HCL SOLN NEBU 0.63 MG/3 ML NEB INH SCH ×4 (00:20→19:10)
[2018-09-01] MEDS: IPRATROPIUM BROMIDE 0.02% 2.5 ML NEB NEB SCH ×4 (00:20→19:10)
--- NOTE | 2018-09-01 07:00 | NUR ---
RECEIVED PATIENT RESTING IN BED. RESPIRATIONS EVEN AND UNLABORED, NO ACUTE DISTRESS NOTED. CALL LIGHT WITHIN REACH. BED IN THE LOWEST POSITION.
[2018-09-01] MEDS: NICOTINE 14 MG/EA PATCH TOP SCH (09:05)
--- NOTE | 2018-09-01 09:40 | NUR ---
DR. MESA ROUNDING ON PATIENT. OK TO WEAN PATIENT OFF OF O2. NOTIFIED RT.
--- NOTE | 2018-09-01 12:35 | Progress Note ---
DATE: 09/01/2018 SUBJECTIVE: Mr. Xie is a 53-year-old, heavy smoker man, who came to the emergency room complaining of fever, cough, and shortness of breath. He was found to have COPD exacerbation and pneumonia. He was started on IV antibiotics. He had a bronchoscopy done. OBJECTIVE: GENERAL: Today, he is awake and alert. He is feeling better. VITAL SIGNS: Temperature is 96.9, blood pressure 105/72. HEART: Regular rate. LUNGS: Decreased breath sounds bilaterally. ABDOMEN: Distended and soft. LAB WORK: Potassium 4.2, creatinine is 0.79, and glucose is 100. White count 10.2, hemoglobin 16.6, and hematocrit 50.9. Cultures, Gram stain culture shows streptococcus group C. AFB and fungal cultures are still pending. ASSESSMENT: 1. Acute hypoxic respiratory failure, improving. 2. Chronic obstructive pulmonary disease exacerbation. 3. Atypical pneumonia. 4. Tobacco abuse. PLAN: At present time is to continue IV antibiotics, IV steroids, neb treatment, and PT/OT. Wean him off oxygen. We are still awaiting for AFBs and fungal cultures. Consider discharge him home soon on p.o. antibiotics and have him follow up as an outpatient. All this was discussed with the patient and questions were answered to satisfaction. MD JOE Wheeler/[place] /[id number]
--- NOTE | 2018-09-01 19:48 | NUR ---
PT IS RESTING IN BED RECEIVING BREATHING TREATMENT. NO RESPIRATORY DISTRESS NOTED. BED IN THE LOWEST POSITION, LOCKED, AND CALL LIGHT WITHIN REACH. WILL CONTINUE TO MONITOR.
[2018-09-01] MEDS: LEVOFLOXACIN 500MG/D5W 100ML 100 ML IV SCH (21:54)
[2018-09-02] MEDS: LEVALBUTEROL HCL SOLN NEBU 0.63 MG/3 ML NEB INH SCH ×2 (01:02→07:40)
[2018-09-02] MEDS: IPRATROPIUM BROMIDE 0.02% 2.5 ML NEB NEB SCH ×2 (01:02→07:40)
[2018-09-02 04:00] VITALS: BP 104/62
--- NOTE | 2018-09-02 07:05 | NUR ---
RECEIVED PATIENT RESTING IN BED, RESPIRATIONS EVEN AND UNLABORED, NO ACUTE DISTRESS NOTED. CALL LIGHT WITHIN REACH. BED IN THE LOWEST POSITION.
[2018-09-02 07:35] VITALS: BP 112/75
[2018-09-02 07:57] VITALS: BP 112/75
[2018-09-02] MEDS: NICOTINE 14 MG/EA PATCH TOP SCH (08:34)
--- NOTE | 2018-09-02 08:50 | NUR ---
DR. MESA ROUNDING ON PATIENT. OK TO DC PATIENT IF HIS O2 SAT STAYS WNL IN ROOM AIR.
--- NOTE | 2018-09-02 10:31 | NUR ---
PATIENT HAD PT AT THIS TIME, HE REMAINED AT 93% ON ROOM AIR DURING THERAPY.
[2018-09-02 12:12] VITALS: BP 101/65
--- NOTE | 2018-09-02 13:23 | NUR ---
RECEIVED DC ORDER FROM MD, PATIENT IS IN STABLE CONDITION. DENIES PAIN OR DISCOMFORT. O2 SAT HAS BEEN WNL IN ROOM AIR. OK TO DC FROM DR. LUQUE. IV LINE TO RIGHT AC DCD WITH TIP INTACT. DC FOLDER ON HAND, PERSONAL ITEMS ALSO ON HAND. PATIENT ACCOMPANIED TO PRIVATE AUTO VIA WHEELCHAIR BY STAFF.
--- NOTE | 2018-09-03 07:49 | Discharge Summary ---
HOSPITAL COURSE: Mr. Xie is a 53-year-old man, heavy smoker, who came to the emergency room complaining of shortness of breath, fever, and cough. He was found to have a COPD exacerbation and pneumonia. He was started on IV antibiotics, had a bronchoscopy done, and transferred to the floor yesterday. He exercised around without oxygen and O2 saturation was 93%. The patient wants to go home. PHYSICAL EXAMINATION: GENERAL: He is awake and alert. VITAL SIGNS: Temperature is 97.3 and blood pressure 112/75. HEART: Regular rate. LUNGS: Clear to auscultation. ABDOMEN: Soft. LABORATORY DATA: On the blood work, potassium is 4.2, creatinine is 0.79, and glucose 100. White count 10.2, hemoglobin 16.6, and hematocrit 50.9. The culture shows strep species, Streptococcus group C. AFB and fungal cultures are still pending. The discharge diagnosis on this patient is discussed with the disease, he is going to go. DISCHARGE DIAGNOSES: 1. Acute hypoxic respiratory failure, improving. 2. Chronic obstructive pulmonary disease exacerbation. 3. Atypical pneumonia. 4. Tobacco abuse. PLAN: At the present time, discussed with ID to discharge him home on p.o. Levaquin. He has O2 saturation yesterday with exercise at 193%. He did not qualify for home O2. He will have to follow up with his PCP and with Infectious Disease for AFB, some fungal cultures final results. He was advised to quit smoking. All this was discussed with the patient. All questions were answered to satisfaction. Please see home medication reconciliation list. MD JOE Wheeler/HUGOL /[id number]
== END 2018-09-02 13:30 | disposition home or self-care (01) | DRG 871 ==
LOC: FSED 22:39 → ERHOLD 08-23 00:03 → ICU 08-23 06:50 → MED/SURG3 08-29 21:24
PROVIDERS: ADMIT Internal Medicine; ATTEND Internal Medicine
PROC: 0BDD8ZX Extraction of Right Middle Lung Lobe, Via Natural or Artificial Opening Endoscopic, Diagnostic (ICD-10-PCS; 2018-08-25)
PROC: 0B9D8ZX Drainage of Right Middle Lung Lobe, Via Natural or Artificial Opening Endoscopic, Diagnostic (ICD-10-PCS; principal; 2018-08-25 13:00)
DX: A41.9 Sepsis, unspecified organism (principal); J15.4 Pneumonia due to other streptococci; J96.01 Acute respiratory failure with hypoxia; J44.0 Chronic obstructive pulmonary disease with (acute) lower respiratory infection; J44.1 Chronic obstructive pulmonary disease with (acute) exacerbation; F17.210 Nicotine dependence, cigarettes, uncomplicated
CPT/HCPCS: 36415; 36600; 71045; 71046; 71250; 71260; 80048; 80053; 81001; 82550; 82553; 82805; 83880; 84484; 85007; 85025; 85027; 85610; 85730; 86738; 87015; 87040; 87070; 87102; 87116; 87205; 87206; 87335; 87385; 87390; 87400; 87449; 88112; 88305; 88313; 89051; 93005; 94640; 96360; 99284; G0433; G0435; J1650; J1956; J2001; J2250; J2920; J2930; J7040; J7050; Q9967